=== PATIENT | male | born 1955 | race Caucasian/White ===

== ENCOUNTER → 2016-11-11 | Outpatient (CLI) | payer MEDICAID | LOC: BRMIMAGING 13:33 | DX: Z13.820 Encounter for screening for osteoporosis (principal); M85.80 Other specified disorders of bone density and structure, unspecified site; E21.3 Hyperparathyroidism, unspecified; E83.52 Hypercalcemia ==

== ENCOUNTER 2017-06-16 20:31 | Emergency (ER) | payer MEDICAID ==
[2017-06-16 20:42] VITALS: BP 176/100; PULSE 79; RESP 16; TEMP 98.1; O2SAT 100
--- NOTE | 2017-06-16 20:59 | EDPHY ---
H & P Time Seen by Provider: 06/16/17 20:54 HPI/ROS: CHIEF COMPLAINT: Right ankle pain HISTORY OF PRESENT ILLNESS: 62-year-old male complaining of acute right lateral ankle pain after he was cut boarding earlier today, a zac of wind picked him up and he landed on his twisted foot. He denies calcaneus pain. Denies knee, back, hip, pain, denies straddle injury. He was able to initially bear weight when this happened approximately 3:00 p.m. today. PRIMARY CARE PROVIDER: [facility] REVIEW OF SYSTEMS: A ten point review of systems was performed and is negative with the exception of the items mentioned in the HPI PHYSICAL EXAM (Prior to examination, patient consented to physical exam, hands were washed and my usual and customary physical exam procedures followed) 1) GENERAL: Well-developed, well-nourished, alert and oriented. Appears to be in no acute distress. 2) HEAD: Normocephalic 3) HEENT: Pupils equal, round, reactive to light bilaterally. 4) LUNGS: Breathing comfortably. 5) MUSCULOSKELETAL: Soft tissue swelling and tenderness to palpation lateral malleolus. proximal tibia and fibula nontender .5th MT nontender negative Sutton test, compartments soft 6) SKIN: intact 7) VASCULAR: DP,PT pulses and cap refill present and brisk DIFFERENTIAL DIAGNOSIS: in no particular order including but not limited to fracture, sprain, compartment syndrome Procedure: Crutches indications for crutch use discussed with patient. Patient fitted for crutches by ER staff. Observed ambulating with crutches. I think the patient has the capacity to safely use crutches. Usual and customary crutch walking precautions provided Procedure: Splint A Sly boot splint was applied by ER residential service technician. After application of the splint I returned and re-examined the patient. The splint was adequately immobilizing the joint and distal to the splint the patient's circulation and sensation were intact. Patient shows no signs of compartment syndrome. Was given orthopedic precautions. Smoking Status: Never smoked Constitutional: Initial Vital Signs Temperature (C) 36.7 C 06/16/17 20:40 Heart Rate 79 06/16/17 20:40 Respiratory Rate 16 06/16/17 20:40 Blood Pressure 176/100 H 06/16/17 20:40 O2 Sat (%) 100 06/16/17 20:40 O2 Delivery Mode Room Air Allergies/Adverse Reactions: NO ANIMAL PRODUCTS Adverse Reaction (Uncoded 06/04/16 18:52) Other-Enter Comments Home Medications: Medication Instructions Recorded NK [No Known Home Meds] 06/16/17 MDM/Departure - [facility] ED Course/Re-evaluation: Care of patient under supervision of secondary supervising physician Dr Stewart . Serial examinations, remains neurovascular intact no evidence of compartment syndrome. He has been splinted, follow up with Orthopedics. Usual and customary orthopedic precautions and instructions provided - Depart Disposition: Home, Routine, Self-Care Clinical Impression: Ankle sprain Qualifiers: Encounter type: initial encounter Involved ligament of ankle: unspecified ligament Laterality: right Qualified Code(s): S93.401A - Sprain of unspecified ligament of right ankle, initial encounter Condition: Good Instructions: Ankle Sprain (ED) Additional Instructions: Return to the ER immediately if you experience discoloration, have worsening pain, numbness, tingling, or any other symptoms that concern you. If you received x-rays in the emergency department today, be advised, that ligamentous , tendon, muscular, and other non-bony injury cannot be fully ruled out. Try to keep your affected extremity elevated above the level of your chest, and keep cold packs on the affected area, for the next 48 hours. Referrals: Lance Sandhu MD [Medical Doctor] - 5-7 days, call for appt.
== END 2017-06-16 21:35 | disposition home or self-care (01) ==
DX: S93.401A Sprain of unspecified ligament of right ankle, initial encounter (principal); X58.XXXA Exposure to other specified factors, initial encounter
CPT/HCPCS: L4386